=== PATIENT | male | born 1990 | race Caucasian/White ===

== ENCOUNTER 2020-11-18 05:54 | Inpatient (IN) | payer OTHER ==
[~2020-11-18] VITALS: Ht 180.3 cm; Wt 97.9 kg
[2020-11-18 06:15] VITALS: BP 133/92
[2020-11-18 06:35] LABS: ABSOLUTE BASOPHILS 0.1 thou/uL (0.0-0.2); ABSOLUTE EOSINOPHILS 0.1 thou/uL (0.0-0.7); ABSOLUTE LYMPHOCYTES 2.6 thou/uL (0.8-5.3); ABSOLUTE MONOCYTES 0.5 thou/uL (0.0-1.2); ABSOLUTE NEUTROPHILS 4.5 thou/uL (1.6-8.1); BASOPHILS 0.7 %; EOSINOPHILS 1.6 %; HEMATOCRIT 47.2 % (42.0-52.0); HEMOGLOBIN 16.1 gm/dL (14.0-18.0); LYMPHOCYTES 33.6 %; MCH 29.8 pg (26.0-34.0); MCHC 34.1 g/dL (28.0-37.0); MCV 87.4 fL (80.0-100.0); MONOCYTES 6.5 %; MPV 8.4 fl. (7.2-11.1); NUCLEATED RBCS 0 /100WBC; PLATELET COUNT* 255 thou/uL (150-400); POLYS 57.6 %; WBC 7.8 thou/uL (4.0-11.0)
[2020-11-18] MEDS ORDERED: LEVO-T100 MCG PO (06:38)
[2020-11-18 06:44] LABS: BE -1.2 mmol/L (-2 to +3); PCO2 33.7 mmHg (35.0-45.0); PO2 104.1 mmHg (75.0-100.0); pH 7.436 (7.340-7.450)
[2020-11-18 06:45] LABS: CALCIUM 8.2 mg/dL (8.5-10.1); CREATININE 1.3 mg/dL (0.6-1.3); POTASSIUM 3.5 mmol/L (3.5-5.1)
[2020-11-18 06:49] LABS: ALBUMIN 4.6 g/dL (3.4-5.0); MAGNESIUM 2.3 mg/dL (1.8-2.4); TOTAL BILIRUBIN 0.3 mg/dL (<0.1-1.0); TOTAL PROTEIN 8.1 g/dL (6.4-8.2)
[2020-11-18 08:47] LABS: URINE BILIRUBIN NEGATIVE (Negative); URINE BLOOD NEGATIVE (Negative); URINE CLARITY CLEAR; URINE COLOR YELLOW; URINE GLUCOSE-RANDOM NEGATIVE (Negative); URINE KETONES NEGATIVE (Negative); URINE LEUKOCYTES-REFLEX NEGATIVE (Negative); URINE NITRITE-REFLEX NEGATIVE (Negative); URINE PROTEIN NEGATIVE (Negative); URINE UROBILINOGEN 0.2 E.U./dl (0.2-1.0)
[2020-11-18 10:11] VITALS: BP 133/92
[2020-11-18 10:43] VITALS: BP 120/77
--- NOTE | 2020-11-18 11:15 | NUR ---
RECIEVED REPORT FROM CHAS RN IN ER OF EXPECTED ADMISSION AT 1008- DX: INHALATION EXPOSURE- PT ARRIVED TO UNIT ROOM 210 VIA CART, SBA TO BED- OBSTETRICAL ANESTHESIOLOGIST PLACED ORDERED, TRACING SR- PT A&O X4- CONT OF B/B- SBA WITH TRANSFERS FOR SAFETY AT THIS TIME- LCTA, RESP EVEN AND UN-LABORED- VSS, O2 SAT 100% ON NRB PER POSION CONTROL RECOMMENDATIONS- ABD SOFT/ROUND/NON-TENDER, BS X4 QUADS- LAST BM REPORTED THIS AM- RIGHT AC FIELD STICK NOTED INTACT ADN SL, POST BOLUS ORDERED- GOOD PO INTAKE NOTED AT TIME OF ADMISSION- DENIES ANY C/O PAIN- CALL LIGHT AND PERSONAL BELONGINGS WITH IN REACH- ALL NEEDS MET AT THIS TIME
[2020-11-18 12:00] VITALS: BP 120/77
[2020-11-18 12:32] LABS: AMP/METHAMP Negative (Negative); BARBITURATES Negative (Negative); BENZODIAZEPINES Negative (Negative); COCAINE Negative (Negative); METHADONE Negative (Negative); OPIATES Negative (Negative); PCP Negative (Negative); THC Negative (Negative)
--- NOTE | 2020-11-18 14:52 | NUR ---
cm s/w pt who indicated he lives at home with m-i-l and children. pt is active and employeed. independent with adls. pt has no dmes. pt currently had o2 applied in room. pt denies hx with hh or snf. cm to cont to follow
[2020-11-18 16:00] VITALS: BP 107/65
[2020-11-18 20:14] VITALS: BP 104/63
[2020-11-19 00:33] VITALS: BP 93/57
[2020-11-19 04:49] LABS: ABSOLUTE LYMPHOCYTES 2.1 thou/uL (0.8-5.3); ABSOLUTE MONOCYTES 0.6 thou/uL (0.0-1.2); ABSOLUTE NEUTROPHILS 7.8 thou/uL (1.6-8.1); BASOPHILS 0.1 %; EOSINOPHILS 0.1 %; HEMATOCRIT 40.1 % (42.0-52.0); LYMPHOCYTES 19.6 %; MCH 29.9 pg (26.0-34.0); MCHC 34.1 g/dL (28.0-37.0); MCV 87.7 fL (80.0-100.0); MPV 8.9 fl. (7.2-11.1); NUCLEATED RBCS 0 /100WBC; PLATELET COUNT* 255 thou/uL (150-400); POLYS 74.2 %; RBC 4.58 mil/uL (4.50-6.00); RDW-CV 14.1 % (10.5-14.5); WBC 10.5 thou/uL (4.0-11.0)
[2020-11-19 05:04] LABS: CALCIUM 7.9 mg/dL (8.5-10.1); CREATININE 1.1 mg/dL (0.6-1.3)
[2020-11-19 05:18] LABS: HEMOGLOBIN 13.7 gm/dL (14.0-18.0)
--- NOTE | 2020-11-19 05:25 | NUR ---
PT IS ABLE TO COMMUNICATE HIS NEEDS TO STAFF EFFECTIVELY. CURRENT PAIN MEDICATION REGIMEN HAS BEEN ADEQUATE FOR CONTROLLING HIS PAIN UP TO THIS TIME. PT ON O2 WHILE SLEEPING, WILL LIKELY NOT NEED IT ON WHILE AWAKE. CURRICULUM DEVELOPMENT SPECIALIST HAS BEEN IN CONTACT WITH POISON CONTROL REGARDING HIS STATUS.
[2020-11-19 05:55] VITALS: BP 100/58
[2020-11-19 08:00] VITALS: BP 124/85
--- NOTE | 2020-11-19 09:27 | EKG ---
[place] [address] ELECTROCARDIOGRAM REPORT Name: NAVNEET TIPTON Room: [address] ADM IN [facility]#: [id number] Admission: 11/18/20 Attend Phys: Yariel Nicole, Discharge: Date of : 89 Date of Service: 11/18/20612 Report #: [id number] THIS REPORT FOR: //name// [facility] ED Test Date: 2020-11-18 Test Time: 06:13:11 Pat Name: NAVNEET TIPTON Department: Room: [facility] Gender: M Cut [employer] Saw Grader: [facility] [employer] : 1990 Requested By: Fan Gonzales Order Number: [id number] MD: Seb Han Measurements Intervals [place] Rate: 87 P: 39 TN: 153 QRS: 17 QRSD: 94 T: 25 QT: 345 QTc: 415 Interpretive Statements Sinus rhythm RSR' in V1 or V2, probably normal variant No previous ECG available for comparison Electronically Signed On 11-19-2020 9:27:26 CDT by Seb Han [email or web address] <ELECTRONICALLY SIGNED> By: Seb Han MD, [facility] 11/19/20 0927 0613 2 Seb Han MD, [facility] /EPI
[2020-11-19 11:12] VITALS: BP 124/85
[2020-11-19] MEDS ORDERED: PROAIR HFA8.5 GM INH (11:59)
--- NOTE | 2020-11-19 12:14 | NUR ---
ASSUMED PT CARE AT 0730, PT AOX4, C/O PAIN TO CHEST FROM COUGHING, PRN TYLENOL GIVEN. PT WORKED W/ DR AND DC ORDERS RECEIVED. IV AND SPECIAL PROCEDURES NURSE REMOVED. PT DC'D BY W/ NURSING STAFF AND ALL PAPERWORK AND PERSONAL BELONGINGS TO MOM'S VEHICLE AT APPROX 1210.
== END 2020-11-19 12:10 | disposition home or self-care (01) | DRG 918 ==
LOC: M.ERS 05:54 → M.2W 08:42 → M.TBA-ER 08:42 → M.2W 10:15
PROVIDERS: Personal Emergency Response Attendant; ADMIT Internal Medicine; ATTEND Internal Medicine
DX: T57.1X1A Toxic effect of phosphorus and its compounds, accidental (unintentional), initial encounter (principal); E03.9 Hypothyroidism, unspecified; Z20.822 Contact with and (suspected) exposure to COVID-19; Y92.89 Other specified places as the place of occurrence of the external cause

== ENCOUNTER 2020-11-19 18:07 | Emergency (ER) | payer OTHER ==
[~2020-11-19 18:07] MED LIST: LEVO-T100 MCG PO; PROAIR HFA8.5 GM INH
== END 2020-11-19 19:23 | disposition home or self-care (01) ==
LOC: M.ERS 18:07
DX: Z02.89 Encounter for other administrative examinations (principal)

== ENCOUNTER 2020-12-19 19:06 | Emergency (ER) | payer OTHER ==
[~2020-12-19] VITALS: Ht 180.3 cm; Wt 93.0 kg
[2020-12-19] MEDS ORDERED: APAP W/CODEINE1 TA2 PO (19:59)
[2020-12-19] MEDS ORDERED: MEDROLDOSEPACK PO (19:59)
[2020-12-19] MEDS ORDERED: FLEXERIL PO (19:59)
[2020-12-19] MEDS ORDERED: NORCO5 PO ×2 (20:10→20:14)
[2020-12-19 20:19] VITALS: BP 126/88
== END 2020-12-19 20:19 | disposition home or self-care (01) ==
LOC: M.ERS 19:06
DX: M54.12 Radiculopathy, cervical region (principal); E03.9 Hypothyroidism, unspecified; Z79.899 Other long term (current) drug therapy

== ENCOUNTER → 2021-01-29 | Outpatient (CLI) | payer OTHER ==
[~2021-01-29] MED LIST changes: +APAP W/CODEINE1 TA2 PO; +FLEXERIL PO; +MEDROLDOSEPACK PO; +NORCO5 PO
== END ==
LOC: M.PC 08:36
PROVIDERS: ATTEND Anesthesiology Pain Medicine
DX: M54.32 Sciatica, left side (principal); M54.12 Radiculopathy, cervical region; E03.9 Hypothyroidism, unspecified; M79.601 Pain in right arm; Z79.899 Other long term (current) drug therapy